=== PATIENT | male | born 1950 | race Caucasian/White ===

== ENCOUNTER → 2018-01-18 | Outpatient (CLI) | payer MEDICARE ==
--- NOTE | 2018-01-18 11:40 | US ---
EXAMINATION TYPE: US thyroid st tissue head/neck DATE OF EXAM: 01/18/2018 COMPARISON: Thyroid ultrasound November 16, 2014. Nuclear medicine thyroid study November 30, 2014 CLINICAL HISTORY: R22.1 neck swelling. Edema mid, right neck, history of left thyroid nodule GLAND SIZE: Right Lobe: 5.7 x 2.7 x 2.8 cm Overall Parenchyma: homogenous Left Lobe: 5.4 x 2.7 x 2.7 cm Overall Parenchyma: homogeneous Isthmus Thickness: 0.7 cm NODULES RIGHT: # of nodules measured on right: 0 LEFT: # of nodules measured on left: 1 1. 3.0 X 2.3 x 2.8 cm isoechoic solid nodule at the lower pole with well-defined margins; . This n odule is taller than wide and shows intranodular vascularity. Prior size: 2.0 x 1.3 x 2.1 cm ISTHMUS: # of nodules measured in the isthmus: 0 Bilateral neck scanned, multiple lymph nodes noted *Technical limitations due to patient's body habitus. difficult to penetrate. Enlarged gland. Heterog eneous lower pole of right thyroid, unable to exclude a nodule. Single nodule noted left thyroid lobe . There is redemonstration of left-sided thyroid nodule slightly larger in size versus ultrasound in 20 15. This is cold nodule on nuclear study. IMPRESSION: Enlarging solid left thyroid nodule that is cold on nuclear study, would consider resampling due to i ncreased malignant potential and enlarging size.
== END | disposition home or self-care (01) ==
LOC: RADUSWWP 10:04
PROVIDERS: ATTEND Family Medicine
DX: E04.1 Nontoxic single thyroid nodule (principal)
CPT/HCPCS: 76536

== ENCOUNTER 2018-02-01 12:14 | Day surgery (SDC) | payer MEDICARE ==
[2018-02-01 12:45] VITALS: TEMP 96.9
[2018-02-01] MEDS ORDERED: ALPRAZolam 0.5 MG TAB PO STA (12:48)
--- NOTE | 2018-02-01 13:57 | US ---
ULTRASOUND GUIDED FNA THYROID BIOPSY: CLINICAL HISTORY: Left thyroid nodule FINDINGS: The procedure was explained to the patient. The risks, complications, benefits and alternatives were discussed and any questions were answered. Informed consent was obtained. Patient was placed supin e on the ultrasound table and prepped and draped in the usual sterile fashion. Utilizing a 25 gauge needle, five passes were made into the requested left thyroid nodule. Patient was stable throughout the procedure. Pathology is pending. All elements of maximal barrier technique were utilized. IMPRESSION: 1. Successful ultrasound guided FNA thyroid biopsy.
[2018-02-01 14:19] VITALS: BP 137/76; PULSE 88; RESP 16
== END 2018-02-01 14:00 | disposition home or self-care (01) ==
LOC: RADPROMAIN 12:14
PROVIDERS: ATTEND Family Medicine
DX: E04.1 Nontoxic single thyroid nodule (principal)
CPT/HCPCS: 10022; 76942; 88173; 88305

== ENCOUNTER → 2018-02-16 | Outpatient (CLI) | payer MEDICARE ==
[2018-02-16 16:13] LABS: Blood Urea Nitrogen 11 mg/dL (9-20)
--- NOTE | 2018-02-16 20:29 | CT ---
EXAMINATION TYPE: CT soft tissue neck w con DATE OF EXAM: 02/16/2018 5:00 PM COMPARISON: NONE HISTORY: Neck swelling CT DLP: 1024.9 mGycm Automated exposure control for dose reduction was used. CONTRAST: CT scan of the neck is performed following with IV Contrast, patient injected with 100 mL of Isovue 3 00. Axial images are obtained, coronal and sagittal reformatted images are reviewed. FINDINGS: There is normal branching pattern of the great vessels on the aortic arch. Thoracic aorta is atheroma tous. Left thyroid lobe is slightly larger than the right. There is a 2 x 1.5 cm rounded low-density on the left thyroid lobe consistent with complex cyst. Trachea appears normal. Epiglottis is normal. Subglottic trachea which normal. Tonsils and adenoids are within normal limits. Exam is limited by th e metal artifact from the dental work. Submandibular salivary glands are symmetric. Parotid glands ar e symmetric. There is a marker on the right anterior neck in the area of concern. I see no significan t cervical adenopathy. I see no pharyngeal mass. There are spondylotic changes in the mid and lower c ervical spine with disc space narrowing and spurring of the endplates. There is no subcutaneous edema . IMPRESSION: There is probably a complex cyst in the left thyroid lobe. No cervical adenopathy. I do not see any significant soft tissue swelling or mass in the area of concern on the right anterior nec k.
== END | disposition home or self-care (01) ==
LOC: RADCTMAIN 15:13
PROVIDERS: ATTEND Family Medicine
DX: R22.1 Localized swelling, mass and lump, neck (principal)
CPT/HCPCS: 82565; 84520; 70491; 36415; Q9967

== ENCOUNTER 2018-10-02 00:15 | Inpatient (IN) | payer MEDICARE ==
[2018-10-02] MEDS ORDERED: SODIUM CHLORIDE 0.9% 500 ML 500 ML IV STA (01:38)
[2018-10-02] MEDS ORDERED: ONDANSETRON 4 MG/2 ML VIAL IVP STA ×2 (01:38→05:18)
[2018-10-02] MEDS ORDERED: ALBUTEROL NEBULIZED 2.5 MG/3 ML INHALATION STA (01:39)
--- NOTE | 2018-10-02 01:55 | ED ---
Nausea/Vomiting/Diarrhea HPI - General Chief complaint: Nausea/Vomiting/Diarrhea Stated complaint: vomiting Time Seen by Provider: 10/02/18 01:15 Source: patient, EMS Mode of arrival: EMS Limitations: no limitations - History of Present Illness Initial comments: This patient is 68-year-old man who presents to be evaluated for what he believes is food poisoning. Patient states that this evening he had the onset of nausea and vomiting, which she states was watery in character and this was followed by diarrhea also, watery in character. He has not seen any blood or coffee-ground material there is no blood or dark tarry stool. Patient also has been having some crampy sensations in the upper abdomen. MD complaint: nausea, vomiting, diarrhea -: hour(s) Description of Vomiting: watery Description of Diarrhea: water Associated Abdominal Pain: Yes Location: LUQ, RUQ, epigastric Radiation: none Severity: moderate Quality: cramping Consistency: intermittent Improves with: none Worsens with: none Associated Symptoms: nausea/vomiting - Related Data Home Medications Medication Instructions Recorded Confirmed Cholecalciferol [Vitamin D3] 2,000 unit PO DAILY@1200 11/16/14 01/27/18 Lisinopril [Zestril] 5 mg PO DAILY 11/16/14 01/27/18 Pravastatin Sodium [Pravachol] 40 mg PO DAILY 11/16/14 02/01/18 guaiFENesin [Mucinex] 600 mg PO BID 11/16/14 01/27/18 Multivitamin [Men's Multi-Vitamin] 1 each PO DAILY 12/05/14 01/27/18 Ranitidine HCl [Zantac] 150 mg PO BID 12/05/14 01/27/18 Albuterol Nebulized [Ventolin 2.5 mg INHALATION Q6H 01/27/18 01/27/18 Nebulized] Cyanocobalamin (Vitamin B-12) 1,000 mcg PO DAILY 01/27/18 01/27/18 [Vitamin B-12] Allergies Allergy/AdvReac Type Severity Reaction Status Date / Time codeine AdvReac Itching Verified 10/02/18 00:21 Review of Systems ROS Statement: Those systems with pertinent positive or pertinent negative responses have been documented in the HPI. ROS Other: All systems not noted in ROS Statement are negative. Constitutional: Denies: fever, chills Respiratory: Denies: cough, dyspnea Cardiovascular: Denies: chest pain, palpitations, syncope Gastrointestinal: Reports: abdominal pain, nausea, vomiting, diarrhea. Denies: hematemesis, melena, hematochezia Genitourinary: Denies: dysuria, hematuria Musculoskeletal: Denies: back pain Skin: Denies: rash Neurological: Denies: headache, weakness, numbness Psychiatric: Reports: anxiety Past Medical History Past Medical History: COPD, GERD/Reflux, Hyperlipidemia, Hypertension, Thyroid Disorder Additional Past Medical History / Comment(s): neck swelled up causing pain in ears but reoloved before he saw his doctor. History of Any Multi-Drug Resistant Organisms: None Reported Past Surgical History: Appendectomy, Orthopedic Surgery, Tonsillectomy Additional Past Surgical History / Comment(s): tracheal stent, plate/screw lt wrist, dental extraction Past Anesthesia/Blood Transfusion Reactions: No Reported Reaction Past Psychological History: No Psychological Hx Reported Smoking Status: Former smoker Past Alcohol Use History: Occasional Past Drug Use History: None Reported - Past Family History Father Family Medical History: Cancer Additional Family Medical History / Comment(s): vocal cord and lung General Exam Limitations: no limitations General appearance: alert, in no apparent distress, obese Eye exam: Present: normal appearance. Absent: scleral icterus, conjunctival injection Neck exam: Present: normal inspection Respiratory exam: Present: normal lung sounds bilaterally. Absent: respiratory distress, wheezes, rales, rhonchi, stridor Cardiovascular Exam: Present: regular rate, normal rhythm, normal heart sounds. Absent: systolic murmur, diastolic murmur, rubs, gallop GI/Abdominal exam: Present: soft. Absent: distended, tenderness, guarding, rebound, mass Extremities exam: Present: normal inspection, normal capillary refill. Absent: pedal edema, calf tenderness Back exam: Present: normal inspection. Absent: CVA tenderness (R), CVA tenderness (L) Skin exam: Present: warm, dry, intact, normal color. Absent: rash Course Vital Signs 10/02/18 10/02/18 10/02/18 00:18 02:00 02:10 Temperature 98.5 F Pulse Rate 78 79 78 Respiratory 16 16 Rate Blood Pressure 162/87 145/89 O2 Sat by Pulse 96 97 Oximetry 10/02/18 10/02/18 10/02/18 02:59 03:00 04:00 Temperature Pulse Rate 68 76 Respiratory 15 20 Rate Blood Pressure 141/102 136/78 O2 Sat by Pulse 95 97 95 Oximetry 10/02/18 10/02/18 05:00 06:00 Temperature Pulse Rate 77 Respiratory 18 15 Rate Blood Pressure 139/81 148/90 O2 Sat by Pulse 95 96 Oximetry Medical Decision Making - Lab Data Result diagrams: 10/02/18 00:26 10/02/18 00:26 Lab Results 10/02/18 10/02/18 10/02/18 Range/Units 00:26 00:26 00:26 WBC 14.6 H (3.8-10.6) k/uL RBC 5.11 (4.30-5.90) m/uL Hgb 16.9 (13.0-17.5) gm/dL Hct 51.5 (39.0-53.0) % MCV 100.8 H (80.0-100.0) fL MCH 33.1 (25.0-35.0) pg MCHC 32.8 (31.0-37.0) g/dL RDW 13.1 (11.5-15.5) % Plt Count 197 (150-450) k/uL Neutrophils % 87 % Lymphocytes % 7 % Monocytes % 3 % Eosinophils % 2 % Basophils % 0 % Neutrophils # 12.6 H (1.3-7.7) k/uL Lymphocytes # 1.0 (1.0-4.8) k/uL Monocytes # 0.5 (0-1.0) k/uL Eosinophils # 0.2 (0-0.7) k/uL Basophils # 0.1 (0-0.2) k/uL Manual Slide Review Performed Poikilocytosis (manual Present Sodium 142 (137-145) mmol/L Potassium 4.5 (3.5-5.1) mmol/L Chloride 107 (98-107) mmol/L Carbon Dioxide 22 (22-30) mmol/L Anion Gap 13 mmol/L BUN 16 (9-20) mg/dL Creatinine 0.67 (0.66-1.25) mg/dL Est GFR (CKD-EPI)AfAm >90 (>60 ml/min/1.73 sqM) Est GFR (CKD-EPI)NonAf >90 (>60 ml/min/1.73 sqM) Glucose 171 H (74-99) mg/dL Calcium 10.4 H (8.4-10.2) mg/dL Total Bilirubin 1.0 (0.2-1.3) mg/dL AST 54 (17-59) U/L ALT 53 (21-72) U/L Alkaline Phosphatase 87 (38-126) U/L Troponin I <0.012 (0.000-0.034) ng/mL Total Protein 8.9 H (6.3-8.2) g/dL Albumin 4.9 (3.5-5.0) g/dL Amylase 113 H (30-110) U/L Lipase 451 H (23-300) U/L C. difficile (EIA) Intrp (Negative) 10/02/18 Range/Units 02:49 WBC (3.8-10.6) k/uL RBC (4.30-5.90) m/uL Hgb (13.0-17.5) gm/dL Hct (39.0-53.0) % MCV (80.0-100.0) fL MCH (25.0-35.0) pg MCHC (31.0-37.0) g/dL RDW (11.5-15.5) % Plt Count (150-450) k/uL Neutrophils % % Lymphocytes % % Monocytes % % Eosinophils % % Basophils % % Neutrophils # (1.3-7.7) k/uL Lymphocytes # (1.0-4.8) k/uL Monocytes # (0-1.0) k/uL Eosinophils # (0-0.7) k/uL Basophils # (0-0.2) k/uL Manual Slide Review Poikilocytosis (manual Sodium (137-145) mmol/L Potassium (3.5-5.1) mmol/L Chloride (98-107) mmol/L Carbon Dioxide (22-30) mmol/L Anion Gap mmol/L BUN (9-20) mg/dL Creatinine (0.66-1.25) mg/dL Est GFR (CKD-EPI)AfAm (>60 ml/min/1.73 sqM) Est GFR (CKD-EPI)NonAf (>60 ml/min/1.73 sqM) Glucose (74-99) mg/dL Calcium (8.4-10.2) mg/dL Total Bilirubin (0.2-1.3) mg/dL AST (17-59) U/L ALT (21-72) U/L Alkaline Phosphatase (38-126) U/L Troponin I (0.000-0.034) ng/mL Total Protein (6.3-8.2) g/dL Albumin (3.5-5.0) g/dL Amylase (30-110) U/L Lipase (23-300) U/L C. difficile (EIA) Intrp Negative (Negative) - EKG Data -: EKG Interpreted by [facility] EKG shows normal: sinus rhythm (With sinus arrhythmia), axis (Normal), intervals (Normal), QRS complexes (Right bundle-branch block), ST-T waves ( Normal) Rate: normal (Rate approximate 77 bpm) Disposition Clinical Impression: Intractable vomiting, Ileus Disposition: ADMITTED IP TO THIS [facility] Condition: Fair Is patient prescribed a controlled substance at d/c from ED?: No Referrals: Cheo Fregoso MD [Primary Care Provider] - 1-2 days
[2018-10-02 02:12] LABS: Basophils # (A) 0.1 k/uL (0-0.2); Basophils % (A) 0 %; Eosinophils # (A) 0.2 k/uL (0-0.7); Eosinophils % (A) 2 %; HCT 51.5 % (39.0-53.0); HGB 16.9 gm/dL (13.0-17.5); Lymphocytes % (A) 7 %; MCH 33.1 pg (25.0-35.0); MCHC 32.8 g/dL (31.0-37.0); MCV 100.8 fL (80.0-100.0); Mean Platelet Volume 7.8; Monocytes # (A) 0.5 k/uL (0-1.0); Monocytes % (A) 3 %; Neutrophils # (A) 12.6 k/uL (1.3-7.7); Neutrophils % (A) 87 %; Platelet Count 197 k/uL (150-450); RBC 5.11 m/uL (4.30-5.90); RDW 13.1 % (11.5-15.5); WBC 14.6 k/uL (3.8-10.6)
--- NOTE | 2018-10-02 02:16 | XR ---
EXAMINATION TYPE: XR abdomen acute w cxr DATE OF EXAM: 10/02/2018 COMPARISON: NONE HISTORY: Abdominal pain chest pain TECHNIQUE: Chest x-ray with supine and upright abdomen FINDINGS: There is no heart failure nor confluent pneumonic infiltrate. There is calcified granuloma in the rig ht lower lobe. Costophrenic angles are clear. There are chest leads. Bowel gas pattern is normal. The re is no sign of intestinal obstruction or pneumoperitoneum. Fecal pattern is normal. There is spurri ng in the lumbar spine. Sacroiliac joints appear intact. There are no pathologic calcifications over the kidneys. IMPRESSION: Nonacute abdomen. No active cardiopulmonary disease.
[2018-10-02 02:17] LABS: Albumin 4.9 g/dL (3.5-5.0); Amylase 113 U/L (30-110); Anion Gap 13 mmol/L; Calcium 10.4 mg/dL (8.4-10.2); Carbon Dioxide 22 mmol/L (22-30); Chloride 107 mmol/L (98-107); Glucose 171 mg/dL (74-99); Lipase 451 U/L (23-300); Sodium 142 mmol/L (137-145); Total Protein 8.9 g/dL (6.3-8.2)
[2018-10-02 02:18] LABS: ALT 53 U/L (21-72); AST 54 U/L (17-59); Alkaline Phosphatase 87 U/L (38-126); Blood Urea Nitrogen 16 mg/dL (9-20); Potassium 4.5 mmol/L (3.5-5.1)
[2018-10-02 02:35] LABS: Poikilocytosis (M) Present
--- NOTE | 2018-10-02 04:17 | CT ---
EXAMINATION TYPE: CT abdomen pelvis wo con DATE OF EXAM: 10/02/2018 COMPARISON: None HISTORY: vomiting CT DLP: 1590 mGycm Automated exposure control for dose reduction was used. TECHNIQUE: Helical acquisition of images was performed from the lung bases through the pelvis. FINDINGS: Lung bases are clear of infiltrate. There is no pleural effusion. Heart size is normal. There are sarah cified granulomata at the right pulmonary hilum. There is no pericardial effusion. There are numerous calcified splenic granulomata. Stomach is large. Gallbladder appears normal. The b ile ducts are not dilated. There are scattered small calcified hepatic granulomata. There is no adrenal mass. Kidneys of normal size and contour. There are multiple small calcifications in both kidneys. Some of these are vascular. There is no hydronephrosis. Ureters are not dilated. Ab dominal aorta is atheromatous. There is no retroperitoneal adenopathy. Bladder distends smoothly. There is no inguinal hernia. There is mild prostatic calcification. There is no free fluid in the pelvis. There is no evidence of a bowel obstruction. There are multiple fluid-filled loops of small and large bowel. I see no intestinal wall thickening. There is multilevel spondylotic changes in the lumbar sp ine with disc space narrowing and spur formation. There is very severe spinal stenosis at L1-2 and L2 -3. There is moderately severe spinal stenosis also at L3-4. There is no compression fracture. Append ix is not seen. There is no sign of appendicitis. IMPRESSION: MULTIPLE FLUID-FILLED LOOPS OF LARGE BOWEL CONSISTENT WITH DIARRHEA. SMALL BOWEL FLUID FILLED LOOPS S UGGESTIVE OF ILEUS. MULTILEVEL SEVERE LUMBAR BONY SPINAL STENOSIS. OLD GRANULOMATOUS DISEASE.
[2018-10-02] MEDS ORDERED: ONDANSETRON 4 MG/2 ML VIAL IVP PRN (06:54)
[2018-10-02] MEDS ORDERED: NALOXONE 0.4 MG/ML 1 ML VIAL IV PRN (06:54)
[2018-10-02] MEDS: SODIUM CHLORIDE 0.9% 1,000 ML IV SCH ×2 (08:09→18:44)
[2018-10-02] MEDS: FAMOTIDINE 20 MG TAB PO SCH ×2 (10:19→21:23)
[2018-10-02] MEDS: LISINOPRIL 5 MG TAB PO SCH (10:19)
[2018-10-02 10:32] VITALS: BMI 50.0
--- NOTE | 2018-10-02 10:38 | P.GSCN ---
History of Present Illness Consult date: 10/02/18 Reason for Consult: This 68-year-old male who is admitted through the emergency room with complaints of nausea abdominal pain and diarrhea. Patient believes he had some food poisoning. The patient states he feels better today. He says complaints of nausea and diarrhea. Past Medical History Past Medical History: COPD, GERD/Reflux, Hyperlipidemia, Hypertension, Thyroid Disorder Additional Past Medical History / Comment(s): neck swelled up causing pain in ears but resolved on own. History of Any Multi-Drug Resistant Organisms: None Reported Past Surgical History: Appendectomy, Orthopedic Surgery, Tonsillectomy Additional Past Surgical History / Comment(s): tracheal stent, plate/screw left wrist, dental extraction Past Anesthesia/Blood Transfusion Reactions: No Reported Reaction Past Psychological History: No Psychological Hx Reported Smoking Status: Former smoker Past Alcohol Use History: Occasional Past Drug Use History: None Reported Additional Drug Use History / Comment(s): Quit smoking 1998 - Past Family History Mother Family Medical History: Renal Disease Father Family Medical History: Cancer Additional Family Medical History / Comment(s): vocal cord and lung Medications and Allergies Home Medications Medication Instructions Recorded Confirmed Type Cholecalciferol [Vitamin D3] 2,000 unit PO DAILY@1200 11/16/14 01/27/18 History Lisinopril [Zestril] 5 mg PO DAILY 11/16/14 01/27/18 History Pravastatin Sodium [Pravachol] 40 mg PO DAILY 11/16/14 02/01/18 History guaiFENesin [Mucinex] 600 mg PO BID 11/16/14 01/27/18 History Multivitamin [Men's Multi-Vitamin] 1 each PO DAILY 12/05/14 01/27/18 History Ranitidine HCl [Zantac] 150 mg PO BID 12/05/14 01/27/18 History Albuterol Nebulized [Ventolin 2.5 mg INHALATION Q6H 01/27/18 01/27/18 History Nebulized] Cyanocobalamin (Vitamin B-12) 1,000 mcg PO DAILY 01/27/18 01/27/18 History [Vitamin B-12] Allergies Allergy/AdvReac Type Severity Reaction Status Date / Time codeine AdvReac Itching Verified 10/02/18 00:21 Surgical - Exam Vital Signs Temp Pulse Resp BP Pulse Ox 98.5 F 78 16 162/87 96 10/02/18 00:18 10/02/18 00:18 10/02/18 00:18 10/02/18 00:18 10/02/18 00:18 - General well developed, no distress - Eyes PERRL - ENT normal pinna - Neck no masses - Respiratory normal expansion - Cardiovascular Rhythm: regular - Abdomen Mildly distended Abdomen: soft, non tender Results - Labs 10/02/18 00:26 10/02/18 00:26 Abnormal Lab Results - Last 24 Hours (Table) 10/02/18 10/02/18 Range/Units 00:26 00:26 WBC 14.6 H (3.8-10.6) k/uL MCV 100.8 H (80.0-100.0) fL Neutrophils # 12.6 H (1.3-7.7) k/uL Glucose 171 H (74-99) mg/dL Calcium 10.4 H (8.4-10.2) mg/dL Total Protein 8.9 H (6.3-8.2) g/dL Amylase 113 H (30-110) U/L Lipase 451 H (23-300) U/L Diabetes panel 10/02/18 Range/Units 00:26 Sodium 142 (137-145) mmol/L Potassium 4.5 (3.5-5.1) mmol/L Chloride 107 (98-107) mmol/L Carbon Dioxide 22 (22-30) mmol/L BUN 16 (9-20) mg/dL Creatinine 0.67 (0.66-1.25) mg/dL Glucose 171 H (74-99) mg/dL Calcium 10.4 H (8.4-10.2) mg/dL AST 54 (17-59) U/L ALT 53 (21-72) U/L Alkaline Phosphatase 87 (38-126) U/L Total Protein 8.9 H (6.3-8.2) g/dL Albumin 4.9 (3.5-5.0) g/dL Calcium panel 10/02/18 Range/Units 00:26 Calcium 10.4 H (8.4-10.2) mg/dL Albumin 4.9 (3.5-5.0) g/dL Pituitary panel 10/02/18 Range/Units 00:26 Sodium 142 (137-145) mmol/L Potassium 4.5 (3.5-5.1) mmol/L Chloride 107 (98-107) mmol/L Carbon Dioxide 22 (22-30) mmol/L BUN 16 (9-20) mg/dL Creatinine 0.67 (0.66-1.25) mg/dL Glucose 171 H (74-99) mg/dL Calcium 10.4 H (8.4-10.2) mg/dL Adrenal panel 10/02/18 Range/Units 00:26 Sodium 142 (137-145) mmol/L Potassium 4.5 (3.5-5.1) mmol/L Chloride 107 (98-107) mmol/L Carbon Dioxide 22 (22-30) mmol/L BUN 16 (9-20) mg/dL Creatinine 0.67 (0.66-1.25) mg/dL Glucose 171 H (74-99) mg/dL Calcium 10.4 H (8.4-10.2) mg/dL Total Bilirubin 1.0 (0.2-1.3) mg/dL AST 54 (17-59) U/L ALT 53 (21-72) U/L Alkaline Phosphatase 87 (38-126) U/L Total Protein 8.9 H (6.3-8.2) g/dL Albumin 4.9 (3.5-5.0) g/dL Assessment and Plan Assessment: Probable gastroenteritis. Patient will be supported. He received IV fluid. He may need an outpatient colonoscopy.
[2018-10-02] MEDS ORDERED: ALBUTEROL NEBULIZED 2.5 MG/3 ML INHALATION PRN (13:33)
[2018-10-02] MEDS: ALBUTEROL NEBULIZED 2.5 MG/3 ML INHALATION SCH ×3 (15:22→19:56)
[2018-10-02] MEDS: SYMBICORT 160-4.5 MCG INHALER INHALATION SCH (19:45)
[2018-10-02] MEDS ORDERED: NON-FORMULARY DRUG (Ranitidine Hcl [Zantac] 150 MG) PO SCH (21:00)
[2018-10-02] MEDS: CHOLECALCIFEROL 1,000 UNIT TAB PO SCH (21:23)
[2018-10-02] MEDS: CYANOCOBALAMIN 500 MCG TAB PO SCH (21:23)
[2018-10-02] MEDS: guaiFENesin 600 MG TABLET.ER PO SCH (21:23)
--- NOTE | 2018-10-03 00:01 | HP ---
HISTORY AND PHYSICAL CHIEF COMPLAINT: A 68-year-old white male with nausea, abdominal pain and diarrhea. He believes he had some food poisoning. He feels better. He has some nausea and diarrhea. He was found to have a little elevated lipase, amylase. History of COPD, GERD, dyslipidemia, hypertension, hypothyroidism. SURGERIES: Appendectomy, orthopedic surgery, tonsillectomy, tracheal stent plate screw, left wrist, dental extraction. SOCIAL HISTORY: Former smoker. No alcohol. No illicit drugs. FAMILY HISTORY: Mother with renal disease. Father cancer, vocal cord and lung. MEDICATIONS: His home medicines: Vitamin D, Zestril, Pravachol, Mucinex, multivitamin, Zantac, Ventolin, B12. ALLERGIES: CODEINE. PHYSICAL EXAMINATION: Vital signs: Temp 98.5, pulse 78, respiratory 16-18, blood pressure 162/87, O2 96% on room air. General: Well developed, well nourished, no acute distress. ENT within normal limits. Neck is supple. CARDIOVASCULAR: S1, S2. LUNGS: Transmitted upper sounds. GI soft. Increased bowel sounds. Hematology: Negative Homans. no suprapubic tenderness. Psych: Fair mood and affect. LABORATORY DATA: White count 14.6, hemoglobin 16.9, creatinine 0.671. ASSESSMENT: 1. Gastroenteritis. 2. Ileus. 3. Pancreatitis. Please see further orders. Amylase and lipase in the morning. Clear liquid diet at this time. MMODL / IJN: [id number] /
[2018-10-03] MEDS: SODIUM CHLORIDE 0.9% 1,000 ML IV SCH ×3 (03:33→22:15)
[2018-10-03 07:29] LABS: Basophils % (A) 0 %; Eosinophils # (A) 0.1 k/uL (0-0.7); Eosinophils % (A) 2 %; HCT 40.1 % (39.0-53.0); Lymphocytes # (A) 1.6 k/uL (1.0-4.8); Lymphocytes % (A) 30 %; MCH 33.3 pg (25.0-35.0); MCHC 32.9 g/dL (31.0-37.0); MCV 101.3 fL (80.0-100.0); Macrocytosis Slight; Mean Platelet Volume 7.4; Monocytes # (A) 0.2 k/uL (0-1.0); Monocytes % (A) 4 %; Neutrophils # (A) 3.3 k/uL (1.3-7.7); Neutrophils % (A) 61 %; Platelet Count 132 k/uL (150-450); RBC 3.96 m/uL (4.30-5.90); RDW 13.2 % (11.5-15.5); WBC 5.4 k/uL (3.8-10.6)
[2018-10-03 07:34] LABS: HGB 13.2 gm/dL (13.0-17.5)
[2018-10-03 07:54] LABS: ALT 44 U/L (21-72); AST 32 U/L (17-59); Albumin 3.2 g/dL (3.5-5.0); Alkaline Phosphatase 45 U/L (38-126); Amylase 39 U/L (30-110); Anion Gap 2 mmol/L; Blood Urea Nitrogen 9 mg/dL (9-20); Calcium 8.7 mg/dL (8.4-10.2); Carbon Dioxide 29 mmol/L (22-30); Chloride 110 mmol/L (98-107); Cholesterol 89 mg/dL (<200); Glucose 91 mg/dL (74-99); HDL Cholesterol 32 mg/dL (40-60); LDL Cholesterol,Calculated 47 mg/dL (0-99); Lipase 87 U/L (23-300); Potassium 4.5 mmol/L (3.5-5.1); Sodium 141 mmol/L (137-145); Total Bilirubin 0.7 mg/dL (0.2-1.3); Total Protein 5.9 g/dL (6.3-8.2); Triglycerides 51 mg/dL (<150)
[2018-10-03] MEDS: SYMBICORT 160-4.5 MCG INHALER INHALATION SCH ×2 (08:11→21:40)
[2018-10-03] MEDS: ALBUTEROL NEBULIZED 2.5 MG/3 ML INHALATION SCH ×3 (08:11→21:40)
[2018-10-03] MEDS: CITALOPRAM HYDROBROMIDE 10 MG TAB PO SCH (08:51)
[2018-10-03] MEDS: LISINOPRIL 5 MG TAB PO SCH (08:51)
[2018-10-03] MEDS: MULTIVITAMINS, THERA 1 EACH TAB PO SCH (08:51)
[2018-10-03] MEDS: FAMOTIDINE 20 MG TAB PO SCH ×2 (08:51→22:16)
[2018-10-03] MEDS: PRAVASTATIN SODIUM 40 MG TAB PO SCH (08:52)
[2018-10-03] MEDS: guaiFENesin 600 MG TABLET.ER PO SCH ×2 (08:52→22:16)
[2018-10-03 09:25] VITALS: RESP 16
[2018-10-03] MEDS: CIPROFLOXACIN HCL 500 MG TAB PO SCH ×2 (12:36→23:52)
--- NOTE | 2018-10-03 13:09 | P.PN ---
Progress Note - Text Progress Note Date: 10/03/18 The patient states he feels better. He's had no diarrhea this morning. On exam his vital signs are stable. His abdomen soft. Resolving gastroenteritis. Patient lives diet advanced to regular diet. He'll be discharged home in the a.m.
[2018-10-03] MEDS: methylPREDNISolone SOD SUCCI 40 MG/ML 1 ML VIAL IV SCH ×2 (14:57→23:52)
--- NOTE | 2018-10-03 17:41 | PN ---
PROGRESS NOTE SUBJECTIVE: 68-year-old white male who has increased cough and wheezing. He has been started on Cipro and IV steroids. His abdominal pain is improved. Amylase and lipase are back to normal. Gastroenteritis is improving. Cardiovascular: S1-S2. Lungs scattered rhonchi and wheeze. Hematology: Negative Homans. : No suprapubic tenderness. ASSESSMENT: 1. Asthma. 2. Tracheobronchitis. 3. Gastroenteritis which is improved. 4. Pancreatitis improved. Continue current treatment. Discharge home in the morning. MMODL / IJN: [id number] /
--- NOTE | 2018-10-03 19:55 | XR ---
EXAMINATION TYPE: XR chest 2V DATE OF EXAM: 10/03/2018 COMPARISON: Yesterday HISTORY: Short of breath TECHNIQUE: Frontal and lateral views of the chest are obtained. FINDINGS: There is no heart failure nor confluent pneumonic infiltrate. Costophrenic angles are lakes[place]. There is spurring in the thoracic spine. Heart size is normal. IMPRESSION: No active cardiopulmonary disease. No change.
[2018-10-03] MEDS: CHOLECALCIFEROL 1,000 UNIT TAB PO SCH (22:15)
[2018-10-03] MEDS: CYANOCOBALAMIN 500 MCG TAB PO SCH (22:15)
[2018-10-04] MEDS: FAMOTIDINE 20 MG TAB PO SCH (08:49)
[2018-10-04] MEDS: LISINOPRIL 5 MG TAB PO SCH (08:49)
[2018-10-04] MEDS: PRAVASTATIN SODIUM 40 MG TAB PO SCH (08:49)
[2018-10-04] MEDS: CITALOPRAM HYDROBROMIDE 10 MG TAB PO SCH (08:49)
[2018-10-04] MEDS: CIPROFLOXACIN HCL 500 MG TAB PO SCH (08:49)
[2018-10-04] MEDS: methylPREDNISolone SOD SUCCI 40 MG/ML 1 ML VIAL IV SCH (08:49)
[2018-10-04] MEDS: guaiFENesin 600 MG TABLET.ER PO SCH (08:49)
[2018-10-04] MEDS: MULTIVITAMINS, THERA 1 EACH TAB PO SCH (08:50)
[2018-10-04 09:02] VITALS: BP 152/90; TEMP 97.8
[2018-10-04] MEDS: SYMBICORT 160-4.5 MCG INHALER INHALATION SCH (09:03)
[2018-10-04] MEDS: ALBUTEROL NEBULIZED 2.5 MG/3 ML INHALATION SCH (09:03)
[2018-10-04 09:07] VITALS: PULSE 72
[2018-10-04 10:20] LABS: Hemoglobin A1C 5.4 % (4.0-6.0)
== END 2018-10-04 11:30 | disposition home or self-care (01) | DRG 391 ==
LOC: EC 00:15 → 4SSUR 07:00
PROVIDERS: ADMIT Family Medicine; ATTEND Family Medicine
DX: K52.9 Noninfective gastroenteritis and colitis, unspecified (principal); K85.90 Acute pancreatitis without necrosis or infection, unspecified; Z68.43 Body mass index [BMI] 50.0-59.9, adult; J44.0 Chronic obstructive pulmonary disease with (acute) lower respiratory infection; J40 Bronchitis, not specified as acute or chronic; E66.9 Obesity, unspecified; K21.9 Gastro-esophageal reflux disease without esophagitis; I10 Essential (primary) hypertension; E78.5 Hyperlipidemia, unspecified; E03.9 Hypothyroidism, unspecified; Z79.51 Long term (current) use of inhaled steroids; Z79.899 Other long term (current) drug therapy; Z88.5 Allergy status to narcotic agent; Z87.891 Personal history of nicotine dependence; Z80.8 Family history of malignant neoplasm of other organs or systems; Z80.1 Family history of malignant neoplasm of trachea, bronchus and lung
CPT/HCPCS: 36415; 71046; 74022; 74176; 80053; 80061; 82150; 83036; 83690; 84484; 85025; 87324; 94640; 96374; 96376; 99285